=== PATIENT | male | born 1960 | race African-American/Black ===

== ENCOUNTER 2023-09-15 19:25 | Inpatient (IN) | payer OTHER ==
[2023-09-15 20:03] VITALS: BMI 20.3
[2023-09-15] MEDS ORDERED: BENZONATATE 200 MG CAPSULE PO PRN (23:53)
[2023-09-15] MEDS ORDERED: BENZOCAINE/MENTHOL (CHLORASEPTIC ) LOZENGE MM PRN (23:53)
[2023-09-15] MEDS ORDERED: LOPERAMIDE HCL 2 MG CAPSULE PO PRN (23:53)
[2023-09-15] MEDS ORDERED: hydrOXYzine PAMOATE 25 MG CAPSULE (FP) PO PRN (23:53)
[2023-09-15] MEDS ORDERED: NALOXONE HCL 0.4 MG/ML VIAL IM PRN (23:53)
[2023-09-15] MEDS ORDERED: METHOCARBAMOL 500 MG TABLET PO PRN (23:53)
[2023-09-15] MEDS ORDERED: IBUPROFEN 400 MG TABLET (FP) PO PRN (23:53)
[2023-09-15] MEDS ORDERED: DICYCLOMINE HCL 10 MG CAPSULE PO PRN (23:53)
[2023-09-15] MEDS ORDERED: MAGNESIUM HYDROX 2400MG/30ML ORAL SUSPENSION 30 ML CUP PO PRN (23:53)
[2023-09-15] MEDS ORDERED: NICOTINE POLACRILEX 4 MG GUM BUC PRN (23:53)
[2023-09-15] MEDS ORDERED: NALOXONE HCL (KLOXXADO) 8 MG SPRAY NS PRN (23:53)
[2023-09-15] MEDS ORDERED: ONDANSETRON *ODT* 4 MG TABLET SL PRN (23:53)
[2023-09-15] MEDS ORDERED: MAG HYDROX/AL HYDROX/SIMETH 30 ML UNIT-DOSE CUP PO PRN (23:53)
[2023-09-15] MEDS ORDERED: BISMUTH SUBSALICYLATE 524 MG/30 ML PO PRN (23:53)
[2023-09-15] MEDS ORDERED: POLYETHYLENE GLYCOL (HEALTHYLAX) 3350 17 GM PACKET PO PRN (23:53)
[2023-09-15] MEDS ORDERED: IBUPROFEN 600 MG TABLET (FP) PO PRN (23:53)
[2023-09-15] MEDS ORDERED: ACETAMINOPHEN 325 MG TABLET (FP) PO PRN (23:53)
[2023-09-15] MEDS ORDERED: guaiFENesin 600 MG TABLET.ER (FP) PO PRN (23:53)
[2023-09-16 09:48] LABS: HEMATOCRIT 38.4 % (35.4-49); HEMOGLOBIN 12.8 GM/dL (11.7-16.9); MCH 30.3 pg (25.7-33.7); MCHC 33.2 g/dl (32.0-35.9); MEAN CELL VOLUME 91.2 fl (80-96); MEAN PLT VOLUME 8.2 fl (7.5-11.1); PLATELET COUNT 320 10^3/uL (134-434); RBC 4.21 M/mm3 (4.00-5.60); RDW 13.7 % (11.9-15.9); WHITE BLOOD COUNT 9.2 K/mm3 (4.0-10.0)
[2023-09-16 10:04] LABS: CHLORIDE 109 mmol/L (98-107); POTASSIUM 4.2 mmol/L (3.5-5.1); SODIUM 142 mmol/L (136-145)
[2023-09-16 10:06] LABS: ANION GAP 4 mmol/L (4-13); BLOOD UREA NITROGEN 14.4 mg/dL (7-18); CALCIUM 9.1 mg/dL (8.5-10.1); CO2 29 mmol/L (21-32); GLUCOSE,RANDOM 88 mg/dL (74-106)
[2023-09-16 10:07] LABS: ALBUMIN 3.3 g/dl (3.4-5.0)
[2023-09-16 10:09] LABS: CREATININE 0.9 mg/dL (0.55-1.3); SGOT/AST 15 U/L (15-37)
[2023-09-16 10:10] LABS: SGPT/ALT 20 U/L (13-61)
[2023-09-16 10:11] LABS: BILIRUBIN,TOTAL 0.6 mg/dL (0.2-1); TOT PROT 6.4 g/dl (6.4-8.2)
[2023-09-16 10:12] LABS: ALK PHOS 75 U/L (45-117)
[2023-09-16] MEDS: NICOTINE 21 MG/24 HOURS TOPICAL PATCH TD SCH (10:27)
[2023-09-16] MEDS: PRENATAL VITAMINS W/ FOLIC ACID TABLET (FP) PO SCH (10:27)
[2023-09-16] MEDS: LACTULOSE 20 GM/30 ML UDC (FOR ORAL USE ONLY) PO SCH ×3 (13:16→22:32)
[2023-09-16] MEDS ORDERED: THIAMINE HCL 100 MG TABLET (FP) PO SCH (22:00)
[2023-09-16] MEDS ORDERED: MELATONIN 5 MG TABLETS PO SCH (22:00)
[2023-09-17 07:25] VITALS: RESP 18
[2023-09-17 09:35] VITALS: BP 129/78; PULSE 80; TEMP 97.7
[2023-09-17] MEDS: NICOTINE 21 MG/24 HOURS TOPICAL PATCH TD SCH (09:35)
[2023-09-17] MEDS: LACTULOSE 20 GM/30 ML UDC (FOR ORAL USE ONLY) PO SCH (09:35)
[2023-09-17] MEDS: PRENATAL VITAMINS W/ FOLIC ACID TABLET (FP) PO SCH (09:35)
[2023-09-17] MEDS ORDERED: LORazepam 1 MG TABLET PO PRN (09:47)
[2023-09-17] MEDS ORDERED: LORazepam 2 MG TABLET PO SCH (11:00)
[2023-09-19] MEDS ORDERED: LORazepam 1 MG TABLET PO SCH (05:00)
[2023-09-20] MEDS ORDERED: LORazepam 0.5 MG TABLET PO PRN
[2023-09-20] MEDS ORDERED: LORazepam 0.5 MG TABLET PO SCH (05:00)
[2023-09-21] MEDS ORDERED: LORazepam 0.5 MG TABLET PO ONE (05:00)
== END 2023-09-17 11:45 | disposition left against medical advice (07) | DRG 894 ==
LOC: YASAS 19:25 → SUATTDRO 19:25 → Y6N 23:44
PROVIDERS: ADMIT Allergy & Immunology; ATTEND Surgery
PROC: HZ2ZZZZ Detoxification Services for Substance Abuse Treatment (ICD-10-PCS; principal; 2023-09-15)
DX: F10.20 Alcohol dependence, uncomplicated (principal); F14.20 Cocaine dependence, uncomplicated; F12.20 Cannabis dependence, uncomplicated; F17.210 Nicotine dependence, cigarettes, uncomplicated; N43.3 Hydrocele, unspecified; Z86.73 Personal history of transient ischemic attack (TIA), and cerebral infarction without residual deficits; Z99.89 Dependence on other enabling machines and devices; Z88.0 Allergy status to penicillin
CPT/HCPCS: 36415; 80053; 80307; 82140; 85027; 86780; 87635; 93005; 93010